=== PATIENT | male | born 1950 | race Caucasian/White ===

== ENCOUNTER 2017-10-14 12:22 | Emergency (ER) | payer MEDICARE, OTHER ==
[2017-10-14 13:41] LABS: Clarity Cloudy (Clear); Leukocyte Moderate (Negative); Nitrite Positive (Negative)
[2017-10-14 13:42] LABS: Bilirubin Small (Negative); Blood, Urine Large (Negative); Glucose, Urine (Dipstick) Negative (Negative); Protein, Urine (Dipstick) > or equal to 300 mg/dL (Neg-Trace)
[2017-10-14 13:45] LABS: Bacteria/HPF 1+ HPF (None Seen); Crystals/HPF None Seen HPF (Negative); Hyaline Casts/LPF NONE SEEN LPF (0-3 Hyaline); Other Casts/LPF None Seen LPF (0-3 Hyaline); Oval Fat Bodies/HPF None Seen HPF (None Seen); RBC/HPF GREATER THAN 50-TNTC HPF (0-3); Renal Epithelial None Seen HPF (0-3); Sperm/HPF None Seen HPF (None Seen); Transitional Epithelial NONE SEEN HPF (0-3); Trichomonas/HPF None Seen HPF (None Seen); Yeast-All Forms None Seen HPF (None Seen)
[2017-10-14] MEDS ORDERED: Cephalexin 500 MG CAP ONE (13:48)
--- NOTE | 2017-10-14 19:28 | RAD ---
PORTABLE CHEST 10/14/17 COMPARISON: Comparison is made with the 04/24/15 study. The heart is normal in size. The lung markings are a bit more prominent than they were before in a ve ry diffuse fashion. The vessels do not seem congested. This could be a case of increased interstitial lung disease or other causes of interstitial prominence, including interstitial pneumonia. Or fibros is. There are no effusions. No focal consolidation was seen. The trachea is midline. IMPRESSION: Mild increase in interstitial lung markings since 2016. POS: HOME
== END 2017-10-14 13:52 | disposition home or self-care (01) ==
LOC: BURERS 12:22
DX: N39.0 Urinary tract infection, site not specified (principal); E78.5 Hyperlipidemia, unspecified; I10 Essential (primary) hypertension; J44.9 Chronic obstructive pulmonary disease, unspecified; I25.10 Atherosclerotic heart disease of native coronary artery without angina pectoris; F17.210 Nicotine dependence, cigarettes, uncomplicated; Z79.899 Other long term (current) drug therapy
CPT/HCPCS: 51701; 71045; 81003; 81015; 87086